=== PATIENT | male | born 1990 | race African-American/Black ===

== ENCOUNTER 2017-05-29 17:50 | Emergency (ER) | payer SELFPAY ==
[~2017-05-29] VITALS: Ht 180.3 cm; Wt 109.0 kg
[~2017-05-29 17:50] MED LIST: ENAL20TA81 PO; HYDR12.56 PO; IBUP-232 PO; INSU100V2 SQ; LISI-363 PO; METF-324 PO
[2017-05-29 17:51] VITALS: BP 171/114; PULSE 96; RESP 20; TEMP 99.6; O2SAT 99
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
[2017-05-29] MEDS ORDERED: KETOROLAC TROMETHAMINE 60 MG/2 ML (IM) VIAL IM ONE (19:45)
[2017-05-29] MEDS ORDERED: ORPHENADRINE INJ 60 MG/2 ML AMP IM ONE (19:45)
[2017-05-29] MEDS ORDERED: IBUP1TAB7 PO (20:09)
[2017-05-29] MEDS ORDERED: ROBA500T PO (20:09)
== END 2017-05-29 20:26 | disposition home or self-care (01) ==
LOC: NEPD 17:50
DX: S20.211A Contusion of right front wall of thorax, initial encounter (principal); S09.90XA Unspecified injury of head, initial encounter; E11.9 Type 2 diabetes mellitus without complications; I10 Essential (primary) hypertension; Y09 Assault by unspecified means; Z72.0 Tobacco use; Z79.4 Long term (current) use of insulin
CPT/HCPCS: 70450; 71046; 72125; 96372; 99285; J1885; J2360